=== PATIENT | male | born 1980 | race Caucasian/White ===

== ENCOUNTER → 2019-07-13 | Outpatient (CLI) | payer OTHER ==
--- NOTE | 2019-07-13 14:55 | REP ---
MRI CERVICAL SPINE WITHOUT CONTRAST: Sequences are obtained in the sagittal and axial planes without the use of the intravenous contrast material. The vertebral bodies are normal in height. There is slight reversal of the normal cervical lordosis. No abnormal bone marrow signal is seen. There is diffuse loss of water signal disc degeneration. There is mild disc space narrowing at C5-6. There is no abnormal signal seen in the cervical spinal cord. There is no significant disc bulging or herniation at C2-3, C3-4, or C4-5. There is mild uncovertebral spurring at the C3-4 level which appears to cause a mild degree of neural foraminal narrowing on the left. At C5-6 there is mild diffuse disc bulging with uncovertebral spurring. The disc bulge effaces the subarachnoid space, but does not cause significant cord compression or significant canal narrowing. There does appear to be mild bilateral foraminal narrowing. At C6-7 there is slight diffuse disc bulging with uncovertebral spurring. There is no spinal stenosis. There is mild bilateral foraminal narrowing. IMPRESSION: Mild disc space narrowing at C5-6 with mild diffuse disc bulging and uncovertebral spurring. There is effacement of the subarachnoid space without significant spinal stenosis or cord compression. There is mild bilateral foraminal narrowing at this level. There is very mild diffuse disc bulging at C6-7 with uncovertebral spurring. There is mild bilateral foraminal narrowing at that level. Uncovertebral spurring appears to cause mild foraminal narrowing at C3-4 on the left. Electronically Signed by Trent Barrientos MD 07/13/2019 03:23 P
== END ==
LOC: M RAD 13:12
PROVIDERS: ATTEND Physician Assistant Medical
DX: M50.13 Cervical disc disorder with radiculopathy, cervicothoracic region (principal)

== ENCOUNTER → 2021-03-30 | Outpatient (CLI) | payer OTHER ==
--- NOTE | 2021-03-30 13:30 | REP ---
INDICATION: PAIN IN LT SHOULDER. COMPARISON: None. TECHNIQUE: Coronal oblique T1, T2 fat sat, sagittal oblique T2 fat sat, axial T2 fat sat, gradient echo. FINDINGS: Rotator cuff: There is mild supraspinatus and subscapularis tendinopathy/tendinitis. No rotator cuff tear is seen. Acromioclavicular joint: There are minimal hypertrophic changes at the acromioclavicular joint Acromion: Type 1 Biceps Tendon: In bicipital groove, no tenosynovitis. Hill Sach's deformity: None. Deltoid muscle: No abnormal signal. Biceps labral complex: Intact. Labrum: There is a tear of the posterior labrum. Cartilage: There is diffuse cartilaginous thinning of the posterior glenoid. Bone marrow: No abnormal signal. Joint fluid: No effusion. IMPRESSION: Mild supraspinatus and subscapularis tendinopathy/tendinitis. No rotator cuff tear is seen. There is a tear of the posterior labrum with adjacent diffuse cartilaginous thinning of the glenoid. <Electronically signed by Trent Barrientos > 03/30/21 [id number]
== END ==
LOC: M PLAIMG 10:04
PROVIDERS: ATTEND Physical Medicine & Rehabilitation
DX: S43.492A Other sprain of left shoulder joint, initial encounter (principal); X58.XXXA Exposure to other specified factors, initial encounter; Y92.9 Unspecified place or not applicable; Y93.9 Activity, unspecified; Y99.9 Unspecified external cause status; M75.82 Other shoulder lesions, left shoulder

== ENCOUNTER → 2021-10-02 | Outpatient (REF) | payer OTHER ==
[2021-10-02 11:22] LABS: APPEARANCE, URINE HAZY (CLEAR); BACTERIA, URINE AUTO NEGATIVE (NEGATIVE); BILIRUBIN, URINE AUTO NEGATIVE (NEGATIVE); BLOOD, URINE BLOOD NEGATIVE (NEGATIVE); COLOR, URINE YELLOW (YELLOW); GLUCOSE, URINE (UA) AUTO NEGATIVE (NEGATIVE); KETONE, URINE AUTO NEGATIVE (NEGATIVE); LEUKOCYTE ESTERASE, URINE AUTO NEGATIVE (NEGATIVE); MUCUS, URINE SMALL (NEGATIVE); NITRITE, URINE AUTO NEGATIVE (NEGATIVE); PROTEIN, URINE AUTO NEGATIVE (NEGATIVE); RBC, URINE AUTO 0 /HPF (0-3); SPECIFIC GRAVITY URINE AUTO 1.016 (1.002-1.035); SQUAMOUS EPITHELIAL CELL UR AU 1 /HPF (0-6); UROBILINOGEN, URINE AUTO 0.2 mg/dL (0.0-2.0); WBC, URINE AUTO 2 /HPF (0-3)
[2021-10-02 11:24] LABS: BASO # 0.1 10^3/uL (0.0-0.2); EOS # 0.7 10^3/uL (0.0-0.5); EOS % 12.1 % (0.0-3.0); HEMATOCRIT 44.5 % (42.0-52.0); HEMOGLOBIN 15.4 g/dl (13.5-17.5); LYMPH # 2.3 10^3/uL (1.5-5.0); LYMPH % 38.8 % (24.0-44.0); MEAN CORPUSCULAR HGB CONC 34.6 g/dl (32.0-36.5); MEAN CORPUSCULAR VOLUME 89.5 fl (80.0-96.0); MONO # 0.5 10^3/uL (0.0-0.8); MONO % 8.8 % (2.0-8.0); NEUTROPHILS # 2.3 10^3/uL (1.5-8.5); PLATELET COUNT, AUTOMATED 322 10^3/uL (150-450); RED BLOOD COUNT 4.97 10^6/uL (4.30-6.10); WHITE BLOOD COUNT 5.8 10^3/uL (4.0-10.0)
[2021-10-02 12:22] LABS: ALT/SGPT 23 U/L (12-78); BILIRUBIN,TOTAL 0.6 MG/DL (0.2-1.0); BLOOD UREA NITROGEN 8 MG/DL (7-18); CARBON DIOXIDE LEVEL 27 MEQ/L (21-32); CHLORIDE LEVEL 109 MEQ/L (98-107); CHOLESTEROL LEVEL 190 MG/DL (<200); CREATININE FOR GFR 0.88 MG/DL (0.70-1.30); GLOMERULAR FILTRATION RATE > 60.0 (>60); GLUCOSE, FASTING 88 MG/DL (70-100); HDL CHOLESTEROL 49 MG/DL (>40); POTASSIUM SERUM 4.3 MEQ/L (3.5-5.1); SODIUM LEVEL 141 MEQ/L (136-145); TRIGLYCERIDES LEVEL 112 MG/DL (<150)
[2021-10-02 12:23] LABS: ALBUMIN 4.2 GM/DL (3.2-5.2); CHOLESTEROL RISK RATIO 3.877 (<5); LDL CHOLESTEROL 119 MG/DL (<100); NON-HDL-C 141 MG/DL; TOTAL 25(OH) VITAMIN D 36.8 NG/ML (30.0-100.0); TOTAL PROTEIN 7.3 GM/DL (6.4-8.2)
[2021-10-02 15:59] LABS: HEMOGLOBIN A1c 5.3 %
== END ==
LOC: M LAB 09:00 → EDSTATUS 10-30 10:23
PROVIDERS: ATTEND Nurse Practitioner Family
DX: Z00.00 Encounter for general adult medical examination without abnormal findings (principal); Z79.899 Other long term (current) drug therapy

== ENCOUNTER → 2022-05-31 | Outpatient (CLI) | payer OTHER | LOC: M RAD 10:53 | PROVIDERS: ATTEND Physician Assistant | DX: M79.606 Pain in leg, unspecified (principal) ==

== ENCOUNTER → 2023-01-04 | Outpatient (CLI) | payer OTHER | LOC: M PLARAD 07:58 | PROVIDERS: ATTEND Physician Assistant | DX: H93.13 Tinnitus, bilateral (principal) ==